=== PATIENT | male | born 1945 | race Caucasian/White ===

== ENCOUNTER 2020-03-25 10:14 | Emergency (ER) | payer MEDICARE, BC ==
[2020-03-25 10:48] VITALS: BP 142/75; PULSE 46
--- NOTE | 2020-03-25 11:45 | EDM.PDOC ---
ED HPI GENERAL MEDICAL PROBLEM - General Chief Complaint: Chest Pain Stated Complaint: CHEST PAINS Time Seen by Provider: 03/25/20 10:58 Source of Information: Reports: Patient History Limitations: Reports: No Limitations - History of Present Illness INITIAL COMMENTS - FREE TEXT/NARRATIVE: 74 yo male presents to the ER after an incident of CP this AM. He was cutting up food for his dog and he had a sudden onset of severe across the center of the chest pain. It was so severe that he had to sit down. Denies SOB, dizziness or sweating with the pain. positive family HC of CVD but no personnel hx. Pain fully resolved in 45 seconds. Last week he had an incident of vision disturbance and had a carotid US on wednesday that he has not been notified of the results. Denies fever chills or nausea. afebrile - Related Data Allergies Allergy/AdvReac Type Severity Reaction Status Date / Time niacin Allergy Cannot Verified 03/25/20 10:41 Remember [id number] Reductase AdvReac Muscle Verified 03/25/20 10:41 Inhibitor Aches Home Meds: Home Meds Glucosam/Chondr/Collagn/Hyalur [Glucosamine & Chondroitin Cap] 1 tab PO BID 11/21/13 [History] Multivitamin [Multivitamins] 1 each PO DAILY 11/21/13 [History] metFORMIN [Glucophage] 500 mg PO BID 11/21/13 [History] Aspirin [Aspirin EC] 81 mg PO DAILY 06/01/18 [History] Cyanocobalamin (Vitamin B-12) [Vitamin B-12] 1,000 mcg PO DAILY 06/01/18 [History] Sildenafil Citrate [Sildenafil] 50 mg PO ASDIRECTED 06/01/18 [History] Tolterodine [Detrol] 1 mg PO BID 06/01/18 [History] Ubidecarenone [Coenzyme Q10] 10 mg PO DAILY 06/01/18 [History] Cannabidiol (Cbd) Extract [CBD Oil] 8 drop PO BID 03/25/20 [History] Past Medical History HEENT History: Reports: Hard of Hearing, Impaired Vision Cardiovascular History: Reports: Arrhythmia, High Cholesterol Gastrointestinal History: Reports: Diverticulosis Genitourinary History: Reports: Renal Calculus Musculoskeletal History: Reports: Back Pain, Chronic, Osteoarthritis Other Musculoskeletal History: spinal stenosis Other Neuro History: c-spine arthritis, spinal stenosis Endocrine/Metabolic History: Reports: Diabetes, Type II Hematologic History: Reports: B12 Deficiency - Past Surgical History HEENT Surgical History: Reports: None Cardiovascular Surgical History: Reports: Other (See Below) Other Cardiovascular Surgeries/Procedures: angiogram GI Surgical History: Reports: Colonoscopy Male Surgical History: Reports: Kidney Stone Extraction Neurological Surgical History: Reports: Lumbar Spine Musculoskeletal Surgical History: Reports: Knee Replacement Social & Family History - Family History Family Medical History: Noncontributory - Tobacco Use Smoking Status *Q: Never Smoker - Caffeine Use Caffeine Use: Reports: Coffee - Recreational Drug Use Recreational Drug Use: No ED ROS GENERAL - Review of Systems Review Of Systems: See Below Constitutional: Denies: Fever, Chills Respiratory: Denies: Shortness of Breath, Wheezing, Pleuritic Chest Pain, Cough Cardiovascular: Reports: Chest Pain. Denies: Dyspnea on Exertion, Edema, Lightheadedness, Orthopnea, Palpitations, Syncope ED EXAM, GENERAL - Physical Exam Exam: See Below Exam Limited By: No Limitations General Appearance: Alert, WD/WN, No Apparent Distress Head: Atraumatic, Normocephalic Neck: Normal Inspection, Supple, Non-Tender. No: Carotid Bruit, Lymphadenopathy (R), Lymphadenopathy (L) Respiratory/Chest: No Respiratory Distress, Lungs Clear, Normal Breath Sounds, No Accessory Muscle Use, Chest Non-Tender. No: Crackles, Rhonchi, Wheezing Cardiovascular: Regular Rate, Rhythm, No Edema, No Gallop, No JVD, No Murmur, No Rub GI/Abdominal: Normal Bowel Sounds, Soft, Non-Tender, No Organomegaly, No Distention, No Abnormal Bruit, No Mass Course - Vital Signs Last Recorded V/S: Last Vital Signs Temp 36.2 C 03/25/20 10:51 Pulse 46 L 03/25/20 10:51 Resp 18 03/25/20 10:51 BP 142/75 H 03/25/20 10:51 Pulse Ox 94 L 03/25/20 10:51 - Orders/Labs/Meds Orders: Active Orders 24 hr Category Date Time Status Cardiac Monitoring [RC] .As Directed Care 03/25/20 11:19 Active EKG Documentation Completion [RC] ASDIRECTED Care 03/25/20 11:20 Active EKG 12 Lead [EK] Stat Ther 03/25/20 11:20 Ordered Labs: Laboratory Tests 03/25/20 03/25/20 03/25/20 Range/Units 11:31 11:31 11:31 WBC 5.5 (4.5-11.0) K/uL RBC 4.69 (4.30-5.90) M/uL Hgb 14.2 (12.0-15.0) g/dL Hct 43.2 (40.0-54.0) % MCV 92 (80-98) fL MCH 30 (27-31) pg MCHC 33 (32-36) % Plt Count 272 (150-400) K/uL Neut % (Auto) 58 (36-66) % Lymph % (Auto) 29 (24-44) % [place] % (Auto) 10 H (2-6) % Eos % (Auto) 1 L (2-4) % Baso % (Auto) 1 (0-1) % D-Dimer, Quantitative 334 (0.0-400.0) ng/mL Sodium 142 (140-148) mmol/L Potassium 4.4 (3.6-5.2) mmol/L Chloride 107 (100-108) mmol/L Carbon Dioxide 27 (21-32) mmol/L Anion Gap 8.4 (5.0-14.0) mmol/L BUN 17 (7-18) mg/dL Creatinine 0.9 (0.8-1.3) mg/dL Est Cr Clr Drug Dosing 72.01 mL/min Estimated GFR (MDRD) > 60 (>60) Glucose 106 (74-106) mg/dL Calcium 8.2 L (8.5-10.1) mg/dL Total Bilirubin 0.5 (0.2-1.0) mg/dL AST 17 (15-37) U/L ALT 20 (12-78) U/L Alkaline Phosphatase 95 (46-116) U/L Creatine Kinase 87 (39-308) U/L Troponin I < 0.017 (0.000-0.056) ng/mL Total Protein 6.4 (6.4-8.2) g/dL Albumin 3.3 L (3.4-5.0) g/dL Globulin 3.1 (2.3-3.5) g/dL Albumin/Globulin Ratio 1.1 L (1.2-2.2) - Re-Assessments/Exams Free Text/Narrative Re-Assessment/Exam: 03/25/20 12:11 pt was evaluated on arrival to ER in no acute distress. He was pain free. EKG normal sinus rhythm. trp neg. CBC normal. d-dimer negative. pain was not exertional in nature. He did not become SOB or dizzy. will follow-up with PCP Departure - Departure Time of Disposition: 12:12 Disposition: Home, Self-Care 01 Condition: Good Clinical Impression: Chest pain Qualifiers: Chest pain type: unspecified Qualified Code(s): R07.9 - Chest pain, unspecified Referrals: PCP,None [Primary Care Provider] - Forms: ED Department Discharge Additional Instructions: return to emergency room with return of pain or shortness of breath increase fluid intake with goal of half your body weight in ounces follow-up tomorrow with primary care provider Sepsis Event Note (ED) - Evaluation Sepsis Screening Result: No Definite Risk - Focused Exam Vital Signs: Vital Signs Temp Pulse Resp BP Pulse Ox 03/25/20 10:51 36.2 C 46 L 18 142/75 H 94 L 03/25/20 10:45 36.2 C 46 L 18 142/75 H 94 L - My Orders Last 24 Hours: My Active Orders 03/25/20 11:19 Cardiac Monitoring [RC] .As Directed 03/25/20 11:20 EKG Documentation Completion [RC] ASDIRECTED EKG 12 Lead [EK] Stat - Assessment/Plan Last 24 Hours: My Active Orders 03/25/20 11:19 Cardiac Monitoring [RC] .As Directed 03/25/20 11:20 EKG Documentation Completion [RC] ASDIRECTED EKG 12 Lead [EK] Stat
== END 2020-03-25 12:34 | disposition home or self-care (01) ==
LOC: JP.ED 10:14
DX: R07.9 Chest pain, unspecified (principal); E11.9 Type 2 diabetes mellitus without complications; M19.90 Unspecified osteoarthritis, unspecified site; Z88.8 Allergy status to other drugs, medicaments and biological substances; Z79.899 Other long term (current) drug therapy; Z79.82 Long term (current) use of aspirin; Z79.84 Long term (current) use of oral hypoglycemic drugs
CPT/HCPCS: 36415; 80053; 82550; 84484; 85025; 85379; 93005; 93010; 99284; 99285-25

== ENCOUNTER 2020-06-25 22:54 | Emergency (ER) | payer MEDICARE, BC ==
--- NOTE | 2020-06-25 23:01 | EDM.PDOC ---
ED HPI GENERAL MEDICAL PROBLEM - General Chief Complaint: Upper Extremity Injury/Pain Stated Complaint: CUT FINGER Time Seen by Provider: 06/25/20 22:55 Source of Information: Reports: Patient History Limitations: Reports: No Limitations - History of Present Illness INITIAL COMMENTS - FREE TEXT/NARRATIVE: 74-year-old male is a crush injury to the distal aspect of his middle finger on the left hand. It was caught between a metal pipe and the tailgate of his truck. He has significant bruising in the pulp of the finger, a small amount of blood on the nail and a significant subungual hematoma. No other injury. Onset: Sudden Duration: Hour(s): (Within the last hour) Location: Reports: Upper Extremity, Left Associated Symptoms: Reports: No Other Symptoms Left Finger-Middle Pain Score (Numeric/FACES): 3 - Related Data Allergies Allergy/AdvReac Type Severity Reaction Status Date / Time niacin Allergy Cannot Verified 06/25/20 22:56 Remember [id number] Reductase AdvReac Muscle Verified 06/25/20 22:56 Inhibitor Aches Home Meds: Home Meds Glucosam/Chondr/Collagn/Hyalur [Glucosamine & Chondroitin Cap] 1 tab PO BID 11/21/13 [History] Multivitamin [Multivitamins] 1 each PO DAILY 11/21/13 [History] metFORMIN [Glucophage] 500 mg PO BID 11/21/13 [History] Aspirin [Aspirin EC] 81 mg PO DAILY 06/01/18 [History] Cyanocobalamin (Vitamin B-12) [Vitamin B-12] 1,000 mcg PO DAILY 06/01/18 [History] Sildenafil Citrate [Sildenafil] 50 mg PO ASDIRECTED 06/01/18 [History] Tolterodine [Detrol] 1 mg PO BID 06/01/18 [History] Ubidecarenone [Coenzyme Q10] 10 mg PO DAILY 06/01/18 [History] Cannabidiol (Cbd) Extract [CBD Oil] 8 drop PO BID 03/25/20 [History] Past Medical History HEENT History: Reports: Hard of Hearing, Impaired Vision Cardiovascular History: Reports: Arrhythmia, High Cholesterol Gastrointestinal History: Reports: Diverticulosis Genitourinary History: Reports: Renal Calculus Musculoskeletal History: Reports: Back Pain, Chronic, Osteoarthritis Other Musculoskeletal History: spinal stenosis Other Neuro History: c-spine arthritis, spinal stenosis Endocrine/Metabolic History: Reports: Diabetes, Type II Hematologic History: Reports: B12 Deficiency - Past Surgical History HEENT Surgical History: Reports: None Cardiovascular Surgical History: Reports: Other (See Below) Other Cardiovascular Surgeries/Procedures: angiogram GI Surgical History: Reports: Colonoscopy Male Surgical History: Reports: Kidney Stone Extraction Neurological Surgical History: Reports: Lumbar Spine Musculoskeletal Surgical History: Reports: Knee Replacement Social & Family History - Family History Family Medical History: No Pertinent Family History - Caffeine Use Caffeine Use: Reports: Coffee Review of Systems - Review of Systems Review Of Systems: See Below Constitutional: Denies: Fever Respiratory: Reports: No Symptoms Skin: Reports: Bruising (Significant bruising is developing in the pulp of the finger) Psychiatric: Reports: No Symptoms ED EXAM, GENERAL - Physical Exam Exam: See Below Exam Limited By: No Limitations General Appearance: Alert, No Apparent Distress (Looks uncomfortable but not distressed) Respiratory/Chest: No Respiratory Distress Extremities: Other (Exam is otherwise limited to the left hand. There is ecchymosis through the pulp of the finger, significant subungual hematoma and tenderness to palpation but no laceration.) Neurological: Alert, Oriented Course - Vital Signs Last Recorded V/S: Last Vital Signs Temp 97.1 F 06/25/20 23:10 Pulse 55 L 06/25/20 23:10 Resp 18 06/25/20 23:10 BP 163/73 H 06/25/20 23:10 Pulse Ox 95 06/25/20 23:10 - Orders/Labs/Meds Orders: Active Orders 24 hr Category Date Time Status Fingers Third Digit Lt F2 [CR] Stat Exams 06/25/20 22:57 Taken - Re-Assessments/Exams Free Text/Narrative Re-Assessment/Exam: 06/25/20 23:01 Using cautery 2 holes were placed through the nail which released the hematoma. An x-ray of the finger was obtained. 06/25/20 23:15 X-ray confirms a minimally displaced tuft fracture. The finger was cleaned, a Band-Aid applied and he was given a foam aluminum splint to protect the end of the finger. He can recheck if he feels it is not healing satisfactorily. Departure - Departure Time of Disposition: 23:24 Disposition: Home, Self-Care 01 Clinical Impression: Closed fracture of tuft of distal phalanx of finger Crush injury to finger Qualifiers: Encounter type: initial encounter Qualified Code(s): S67.10XA - Crushing injury of unspecified finger(s), initial encounter Subungual hematoma of digit of hand Qualifiers: Encounter type: initial encounter Qualified Code(s): S60.10XA - Contusion of unspecified finger with damage to nail, initial encounter - Discharge Information Instructions: Subungual Hematoma, [id number], Finger Fracture, Adult, [id number] Referrals: Lew Landon MD [Primary Care Provider] - Forms: ED Department Discharge Care Plan Goals: Keep finger protected while healing, ibuprofen or naproxen will help with pain and recheck if concerns you are not healing satisfactorily. Sepsis Event Note (ED) - Focused Exam Vital Signs: Vital Signs Temp Pulse Resp BP Pulse Ox 06/25/20 23:10 97.1 F 55 L 18 163/73 H 95 - My Orders Last 24 Hours: My Active Orders 06/25/20 22:57 Fingers Third Digit Lt F2 [CR] Stat - Assessment/Plan Last 24 Hours: My Active Orders 06/25/20 22:57 Fingers Third Digit Lt F2 [CR] Stat
[2020-06-25 23:11] VITALS: BP 163/73; PULSE 55
--- NOTE | 2020-06-26 09:00 | CR ---
Fingers Third Digit Lt F2 CLINICAL HISTORY: Injury FINDINGS: There is a transverse fracture through the tuft of the third distal phalanx. There is moderate osteoarthritic change in the interphalangeal joints. IMPRESSION: Tuft fracture Osteoarthritis
== END 2020-06-25 23:24 | disposition home or self-care (01) ==
LOC: JP.ED 22:54
DX: S67.193A Crushing injury of left middle finger, initial encounter (principal); S62.633A Displaced fracture of distal phalanx of left middle finger, initial encounter for closed fracture; S60.132A Contusion of left middle finger with damage to nail, initial encounter; E11.9 Type 2 diabetes mellitus without complications; M19.90 Unspecified osteoarthritis, unspecified site; Z88.8 Allergy status to other drugs, medicaments and biological substances; Z79.899 Other long term (current) drug therapy; Z79.82 Long term (current) use of aspirin; W23.0XXA Caught, crushed, jammed, or pinched between moving objects, initial encounter
CPT/HCPCS: 11740; 73140-26-F2; 73140-F2; 99282; 99283

== ENCOUNTER 2024-05-17 14:08 | Emergency (ER) | payer MEDICARE, BC ==
[2024-05-17 15:09] LABS: BASOPHILS ABSOLUTE AUTO 0.06 K/uL (0.00-0.10); BASOPHILS PERCENT AUTO 0.8 % (0.1-1.3); EOSINOPHILS ABSOLUTE AUTO 0.14 K/uL (0.00-0.40); EOSINOPHILS PERCENT AUTO 1.8 % (0.0-5.4); HEMATOCRIT 41.9 % (38.4-49.7); HEMOGLOBIN 14.6 g/dL (12.9-16.9); IMMATURE GRAN ABSOLUTE AUTO 0.03 K/uL (0.00-0.23); IMMATURE GRAN PERCENT AUTO 0.4 % (0.0-0.7); LYMPHOCYTES ABSOLUTE AUTO 2.09 K/uL (0.8-3.3); MEAN CORPUSCULAR HEMOGLOBIN 32.3 pg (31.6-35.5); MEAN CORPUSCULAR HGB CONC 34.8 g/dL (31.6-35.5); MEAN CORPUSCULAR VOLUME 92.7 fL (81.4-99.0); MONOCYTES ABSOLUTE AUTO 0.75 K/uL (0.20-0.90); MONOCYTES PERCENT AUTO 9.7 % (3.3-12.6); NEUTROPHILS ABSOLUTE AUTO 4.68 K/uL (1.0-7.6); NEUTROPHILS PERCENT AUTO 60.3 % (40.0-78.1); PLATELET COUNT,PLT 238 K/uL (130-375); RED BLOOD CELL COUNT 4.52 M/uL (4.14-5.76); WHITE BLOOD CELL COUNT,WBC 7.8 K/uL (3.2-11.0)
[2024-05-17 15:35] LABS: A/G RATIO 1.1 (1.2-2.2); ALANINE AMINOTRANSFERASE,ALT 34 U/L (12-78); ALBUMIN 3.6 g/dL (3.4-5.0); ALKALINE PHOSPHATASE 86 U/L (46-116); ANION GAP 8.3 mmol/L (5.0-14.0); ASPARTATE AMNIOTRANSFERASE,AST 14 U/L (15-37); BILIRUBIN TOTAL 0.5 mg/dL (0.2-1.0); BLOOD UREA NITROGEN,BUN 17 mg/dL (7-18); CALCIUM 9.1 mg/dL (8.5-10.1); CARBON DIOXIDE,CO2 27 mmol/L (21-32); CHLORIDE,CL 106 mmol/L (100-108); CREATININE 0.9 mg/dL (0.8-1.3); EST CRCL DRUG DOSING (CG) 67.65 mL/min; ESTIMATED GFR 87 mL/min (>60); GLUCOSE RANDOM 104 mg/dL (74-106); POTASSIUM,K 4.2 mmol/L (3.6-5.2); SODIUM,NA 141 mmol/L (140-148)
[2024-05-17 15:41] LABS: MAGNESIUM 1.8 mg/dL (1.8-2.4); TSH ULTRASENSITIVE 3.957 uIU/mL (0.358-3.740)
[2024-05-17 16:32] LABS: APPEARANCE,URINE CLEAR (CLEAR); BILIRUBIN,URINE NEGATIVE (NEGATIVE); COLOR,URINE YELLOW (YELLOW); GLUCOSE,URINE NEGATIVE (NEGATIVE); KETONES,URINE NEGATIVE (NEGATIVE); LEUKOCYTE ESTERASE,URINE NEGATIVE (NEGATIVE); NITRITE,URINE NEGATIVE (NEGATIVE); OCCULT BLOOD,URINE NEGATIVE (NEGATIVE); PROTEIN,URINE NEGATIVE (NEGATIVE); UROBILINOGEN,URINE 0.2 EU/dL (0.2-1.0)
[2024-05-17 16:43] LABS: RBC,URINE NOT SEEN (0-5); WBC,URINE 0-5 (0-5)
[2024-05-17 16:44] LABS: AMORPHOUS SEDIMENT,URINE NOT SEEN; AMPHETAMINES SCREEN, URINE NEGATIVE (NEGATIVE); BACTERIA,URINE RARE; BARBITURATE SCREEN,URINE NEGATIVE (NEGATIVE); BENZODIAZEPINES SCREEN,URINE NEGATIVE (NEGATIVE); EPITHELIAL CELLS,URINE RARE; METHADONE SCREEN, URINE NEGATIVE (NEGATIVE); METHAMPHETAMINES SCREEN, URINE NEGATIVE (NEGATIVE); MUCUS,URINE RARE; OXYCODONE SCREEN,URINE NEGATIVE (NEGATIVE); PROPOXYPHENE SCREEN,URINE NEGATIVE (NEGATIVE); THC SCREEN,URINE 50 NG/ML NEGATIVE (NEGATIVE)
[2024-05-17] MEDS ORDERED: Sodium Chloride 0.9% 10 ML Syringe FLUSH PRN (16:51)
[2024-05-17] MEDS: Iopamidol 755 Mg/ML 100 ML Bottle IV SCH (17:09)
[2024-05-17] MEDS: Sodium Chloride 0.9% 60 ML IV SCH (17:09)
[2024-05-17 17:57] VITALS: BP 157/74; PULSE 41
== END 2024-05-17 18:15 | disposition home or self-care (01) ==
LOC: JP.ED 14:08
DX: E03.9 Hypothyroidism, unspecified (principal); R07.89 Other chest pain; M19.90 Unspecified osteoarthritis, unspecified site; E11.9 Type 2 diabetes mellitus without complications; Z79.84 Long term (current) use of oral hypoglycemic drugs; Z79.82 Long term (current) use of aspirin; Z79.899 Other long term (current) drug therapy; Z88.3 Allergy status to other anti-infective agents; Z88.8 Allergy status to other drugs, medicaments and biological substances
CPT/HCPCS: 36415; 71045; 71275; 80053; 80305; 80307; 81001; 83735; 84443; 84484; 85025; 85379; 93005; 93010; 99284; 99285; J3490; Q9967

== ENCOUNTER 2024-06-01 14:44 | Emergency (ER) | payer MEDICARE, BC ==
[2024-06-01 15:39] LABS: BASOPHILS ABSOLUTE AUTO 0.08 K/uL (0.00-0.10); BASOPHILS PERCENT AUTO 0.9 % (0.1-1.3); EOSINOPHILS ABSOLUTE AUTO 0.11 K/uL (0.00-0.40); EOSINOPHILS PERCENT AUTO 1.2 % (0.0-5.4); HEMATOCRIT 42.8 % (38.4-49.7); HEMOGLOBIN 15.1 g/dL (12.9-16.9); IMMATURE GRAN ABSOLUTE AUTO 0.03 K/uL (0.00-0.23); IMMATURE GRAN PERCENT AUTO 0.3 % (0.0-0.7); LYMPHOCYTES ABSOLUTE AUTO 2.23 K/uL (0.8-3.3); LYMPHOCYTES PERCENT AUTO 24.8 % (11.4-47.7); MEAN CORPUSCULAR HEMOGLOBIN 32.6 pg (31.6-35.5); MEAN CORPUSCULAR HGB CONC 35.3 g/dL (31.6-35.5); MEAN CORPUSCULAR VOLUME 92.4 fL (81.4-99.0); MONOCYTES ABSOLUTE AUTO 0.89 K/uL (0.20-0.90); MONOCYTES PERCENT AUTO 9.9 % (3.3-12.6); NEUTROPHILS ABSOLUTE AUTO 5.64 K/uL (1.0-7.6); NEUTROPHILS PERCENT AUTO 62.9 % (40.0-78.1); PLATELET COUNT,PLT 204 K/uL (130-375); RED BLOOD CELL COUNT 4.63 M/uL (4.14-5.76)
[2024-06-01 16:01] LABS: A/G RATIO 1.2 (1.2-2.2); ALANINE AMINOTRANSFERASE,ALT 26 U/L (12-78); ALBUMIN 3.8 g/dL (3.4-5.0); ALKALINE PHOSPHATASE 96 U/L (46-116); ASPARTATE AMNIOTRANSFERASE,AST 16 U/L (15-37); BILIRUBIN TOTAL 0.4 mg/dL (0.2-1.0); BLOOD UREA NITROGEN,BUN 19 mg/dL (7-18); CALCIUM 9.3 mg/dL (8.5-10.1); CARBON DIOXIDE,CO2 29 mmol/L (21-32); CHLORIDE,CL 102 mmol/L (100-108); EST CRCL DRUG DOSING (CG) 60.88 mL/min; ESTIMATED GFR 77 mL/min (>60); GLUCOSE RANDOM 103 mg/dL (74-106); SODIUM,NA 139 mmol/L (140-148)
[2024-06-01] MEDS: Iopamidol 755 Mg/ML 100 ML Bottle IV SCH (17:11)
[2024-06-01] MEDS: Sodium Chloride 0.9% 60 ML IV SCH (17:11)
[2024-06-01 18:04] VITALS: BP 155/70; PULSE 52
== END 2024-06-01 18:35 | disposition home or self-care (01) ==
LOC: JP.ED 14:44
DX: R07.89 Other chest pain (principal); M19.90 Unspecified osteoarthritis, unspecified site; E11.9 Type 2 diabetes mellitus without complications; Z79.84 Long term (current) use of oral hypoglycemic drugs; Z79.82 Long term (current) use of aspirin; Z79.899 Other long term (current) drug therapy; Z88.3 Allergy status to other anti-infective agents; Z88.8 Allergy status to other drugs, medicaments and biological substances
CPT/HCPCS: 36415; 71045; 71275; 80053; 80307; 84484; 85025; 85379; 93005; 99285; J3490; Q9967; 93010; 99284

== ENCOUNTER 2025-01-16 04:40 | Emergency (ER) | payer MEDICARE, BC ==
[2025-01-16 04:59] VITALS: BP 146/77; PULSE 72
[2025-01-16 05:31] LABS: BASOPHILS ABSOLUTE AUTO 0.04 K/uL (0.00-0.10); BASOPHILS PERCENT AUTO 0.3 % (0.1-1.3); EOSINOPHILS PERCENT AUTO 0.1 % (0.0-5.4); IMMATURE GRAN ABSOLUTE AUTO 0.07 K/uL (0.00-0.23); IMMATURE GRAN PERCENT AUTO 0.5 % (0.0-0.7); LYMPHOCYTES ABSOLUTE AUTO 1.23 K/uL (0.8-3.3); LYMPHOCYTES PERCENT AUTO 9.4 % (11.4-47.7); MONOCYTES ABSOLUTE AUTO 1.82 K/uL (0.20-0.90); MONOCYTES PERCENT AUTO 13.9 % (3.3-12.6); NEUTROPHILS ABSOLUTE AUTO 9.95 K/uL (1.0-7.6); NEUTROPHILS PERCENT AUTO 75.8 % (40.0-78.1); PLATELET COUNT,PLT 265 K/uL (130-375); RED BLOOD CELL COUNT 4.64 M/uL (4.14-5.76); WHITE BLOOD CELL COUNT,WBC 13.1 K/uL (3.2-11.0)
[2025-01-16 05:34] LABS: EOSINOPHILS ABSOLUTE AUTO 0.01 K/uL (0.00-0.40)
[2025-01-16 05:39] LABS: APPEARANCE,URINE CLOUDY (CLEAR); GLUCOSE,URINE NEGATIVE (NEGATIVE); OCCULT BLOOD,URINE MODERATE (NEGATIVE)
[2025-01-16 05:47] LABS: A/G RATIO 0.8 (1.2-2.2); ALANINE AMINOTRANSFERASE,ALT 25 U/L (12-78); ASPARTATE AMNIOTRANSFERASE,AST 16 U/L (15-37); BILIRUBIN TOTAL 0.7 mg/dL (0.2-1.0); BLOOD UREA NITROGEN,BUN 14 mg/dL (7-18); CARBON DIOXIDE,CO2 28 mmol/L (21-32); CHLORIDE,CL 98 mmol/L (100-108); CREATININE 0.9 mg/dL (0.8-1.3); EST CRCL DRUG DOSING (CG) 66.55 mL/min; ESTIMATED GFR 87 mL/min (>60); GLUCOSE RANDOM 128 mg/dL (74-106); POTASSIUM,K 4.1 mmol/L (3.6-5.2); PROTEIN TOTAL,TP 7.4 g/dL (6.4-8.2); SODIUM,NA 135 mmol/L (140-148)
[2025-01-16 05:50] LABS: EPITHELIAL CELLS,URINE FEW
[2025-01-16] MEDS: cefTRIAXone 1 GM, Lidocaine 1% 2.1 ML IM ONE (06:05)
== END 2025-01-16 06:17 | disposition home or self-care (01) ==
LOC: JP.ED 04:40
DX: N39.0 Urinary tract infection, site not specified (principal); E78.00 Pure hypercholesterolemia, unspecified; E11.9 Type 2 diabetes mellitus without complications; Z88.8 Allergy status to other drugs, medicaments and biological substances; Z79.899 Other long term (current) drug therapy; Z79.84 Long term (current) use of oral hypoglycemic drugs
CPT/HCPCS: 36415; 80053; 81001; 83605; 85025; 87086; 87088; 87186; 96372; 99283; 99284; J0696; J2003

== ENCOUNTER 2025-03-03 16:42 | Emergency (ER) | payer MEDICARE, BC ==
[2025-03-03 18:31] LABS: APPEARANCE,URINE CLOUDY (CLEAR); GLUCOSE,URINE NEGATIVE (NEGATIVE); OCCULT BLOOD,URINE SMALL (NEGATIVE)
[2025-03-03 18:35] LABS: BASOPHILS ABSOLUTE AUTO 0.07 K/uL (0.00-0.10); BASOPHILS PERCENT AUTO 0.5 % (0.1-1.3); EOSINOPHILS ABSOLUTE AUTO 0.38 K/uL (0.00-0.40); EOSINOPHILS PERCENT AUTO 2.7 % (0.0-5.4); IMMATURE GRAN ABSOLUTE AUTO 0.07 K/uL (0.00-0.23); IMMATURE GRAN PERCENT AUTO 0.5 % (0.0-0.7); LYMPHOCYTES ABSOLUTE AUTO 2.12 K/uL (0.8-3.3); LYMPHOCYTES PERCENT AUTO 15.3 % (11.4-47.7); MONOCYTES ABSOLUTE AUTO 1.94 K/uL (0.20-0.90); MONOCYTES PERCENT AUTO 14.0 % (3.3-12.6); NEUTROPHILS ABSOLUTE AUTO 9.25 K/uL (1.0-7.6); NEUTROPHILS PERCENT AUTO 67.0 % (40.0-78.1); PLATELET COUNT,PLT 343 K/uL (130-375); RED BLOOD CELL COUNT 3.75 M/uL (4.14-5.76); WHITE BLOOD CELL COUNT,WBC 13.8 K/uL (3.2-11.0)
[2025-03-03 18:40] LABS: SQUAMOUS EPITHELIAL CELLS,UR MODERATE /HPF; UROTHELIAL CELLS,URINE NOT SEEN /HPF
[2025-03-03 19:04] VITALS: BP 128/68; PULSE 61
[2025-03-03 19:05] LABS: A/G RATIO 0.8 (1.2-2.2); ALANINE AMINOTRANSFERASE,ALT 42 U/L (12-78); ASPARTATE AMNIOTRANSFERASE,AST 29 U/L (15-37); BILIRUBIN TOTAL 0.8 mg/dL (0.2-1.0); BLOOD UREA NITROGEN,BUN 17 mg/dL (7-18); CARBON DIOXIDE,CO2 29 mmol/L (21-32); CHLORIDE,CL 99 mmol/L (100-108); CREATININE 0.7 mg/dL (0.8-1.3); EST CRCL DRUG DOSING (CG) 85.57 mL/min; ESTIMATED GFR 94 mL/min (>60); GLUCOSE RANDOM 107 mg/dL (74-106); POTASSIUM,K 4.1 mmol/L (3.6-5.2); PROTEIN TOTAL,TP 7.0 g/dL (6.4-8.2); SODIUM,NA 135 mmol/L (140-148)
[2025-03-03] MEDS: cefTRIAXone 1 GM, Lidocaine 1% 2.1 ML IM ONE (19:51)
== END 2025-03-03 19:57 | disposition home or self-care (01) ==
LOC: JP.ED 16:42
DX: N39.0 Urinary tract infection, site not specified (principal); E78.00 Pure hypercholesterolemia, unspecified; E11.9 Type 2 diabetes mellitus without complications; Z88.8 Allergy status to other drugs, medicaments and biological substances; Z79.84 Long term (current) use of oral hypoglycemic drugs; Z79.82 Long term (current) use of aspirin; Z79.899 Other long term (current) drug therapy; Z79.890 Hormone replacement therapy
CPT/HCPCS: 36415; 80053; 81001; 83605; 85025; 87086; 87088; 87186; 93005; 96372; 99285; J0696; J2003; 93010; 99283